=== PATIENT | female | born 1955 | race Hispanic/Latino ===

== ENCOUNTER 2021-10-19 17:20 | Emergency (ER) | payer BC, OTHER ==
[~2021-10-19] VITALS: Ht 172.7 cm; Wt 79.4 kg
[2021-10-19] MEDS ORDERED: KETOROLAC 30MG VIAL (30MG/ML) IV ONE (18:00)
[2021-10-19] MEDS ORDERED: MORPHINE 4 MG SYG IV ONE (18:00)
[2021-10-19] MEDS ORDERED: ONDANSETRON 4MG INJ IVP ONE (18:00)
[2021-10-19] MEDS ORDERED: ONDANSETRON 4MG INJ ONE (18:11)
[2021-10-19] MEDS ORDERED: KETOROLAC 30MG VIAL (30MG/ML) ONE (18:11)
[2021-10-19 18:59] VITALS: BP 133/69
[2021-10-19] MEDS ORDERED: CELE200 PO (19:19)
[2021-10-19] MEDS ORDERED: HYDR-4060 PO (19:19)
== END 2021-10-19 19:48 | disposition home or self-care (01) ==
LOC: EDH 17:20
DX: M53.3 Sacrococcygeal disorders, not elsewhere classified (principal); M54.50 Low back pain, unspecified; I10 Essential (primary) hypertension; Z79.1 Long term (current) use of non-steroidal anti-inflammatories (NSAID); Z79.899 Other long term (current) drug therapy; W01.0XXA Fall on same level from slipping, tripping and stumbling without subsequent striking against object, initial encounter; Y93.89 Activity, other specified; Y92.89 Other specified places as the place of occurrence of the external cause; Y99.8 Other external cause status
CPT/HCPCS: 72100; 96374; 96375; 99284; J1885; J2405